=== PATIENT | female | born 1940 | race Caucasian/White ===

== ENCOUNTER 2017-02-13 16:49 | Emergency (ER) | payer OTHER, BC ==
--- NOTE | 2017-02-13 16:58 | PDOC ---
History of Present Illness - General History Source: Patient, Old Records Exam Limitations: No Limitations - History of Present Illness Initial Comments: 02/13/17 18:02 The patient is a 76 year old female, with a significant past medical history of hypertension, hyperlipidemia and diabetes, who presents to the emergency department with bilateral lower extremity edema, right greater than left, for the past 2-3 weeks. The patient denies any chest pain or shortness of breath. The patient denies fever, chills, nausea, vomiting, diarrhea or dysuria. The patient is on one daily baby aspirin. Allergies: Amoxicillin, Cefadroxil, Codeine. Past Surgical History: Aortic Valve Replacement. Social History: Former smoker (quit in 1960). Denies alcohol or drug use. <Hannah Low - Last Filed: 02/13/17 18:17> - General History Source: Patient, Old Records Exam Limitations: No Limitations <No Rodrigues - Last Filed: 02/13/17 18:39> - General Chief Complaint: Edema Stated Complaint: BLE SWELLING Time Seen by Provider: 02/13/17 16:58 Past History <Hannah Low - Last Filed: 02/13/17 18:17> - Past Medical History Diabetes: Yes HTN: Yes Hypercholesterolemia: Yes - Surgical History Cardiac Surgery: Yes (aortic valve replacement with bovine valve x2) - Psycho/Social/Smoking Cessation Hx Anxiety: No Suicidal Ideation: No Smoking History: Former smoker Years of Tobacco Use: 2 (quit smoking age 21) Have you smoked in the past 12 months: No Hx Alcohol Use: No Substance Use Type: None Hx Substance Use Treatment: No <No Rodrigues - Last Filed: 02/13/17 18:39> - Past Medical History Allergies/Adverse Reactions: Allergies Allergy/AdvReac Type Severity Reaction Status Date / Time amoxicillin Allergy Verified 12/12/14 13:09 cefadroxil Allergy Verified 02/13/17 17:06 codeine Allergy Verified 12/12/14 13:09 Home Medications: Ambulatory Orders Amlodipine Besylate [Norvasc -] 5 mg PO DAILY 12/12/14 Aspirin [ASA -] 81 mg PO DAILY 12/12/14 Calcium 1 tab PO DAILY 12/12/14 Cholecalciferol (Vitamin D3) [Vitamin D3] 1,000 unit PO DAILY 12/12/14 Lansoprazole [Prevacid -] 30 mg PO DAILY 12/12/14 Levothyroxine [Synthroid -] 75 mcg PO DAILY 12/12/14 Magnesium Oxide [Magnesium] 400 mg PO DAILY 12/12/14 Multivitamins 1 tab PO DAILY 12/12/14 Olmesartan Medoxomil [Benicar -] 40 mg PO DAILY 12/12/14 Vitamin E 1,000 unit PO DAILY 12/12/14 Insulin (Levemir) [Levemir Flexpen -] 15 units SQ HS 02/13/17 Insulin Lispro Protamin/Lispro [Humalog Mix 50-50 Kwikpen] 35 unit SQ BID Pregabalin [Lyrica] 50 mg PO TID 02/13/17 Review of Systems - Review of Systems Able to Perform ROS?: Yes Comments:: 02/13/17 17:32 GENERAL/CONSTITUTIONAL: No fever or chills. No weakness. HEAD, EYES, EARS, NOSE AND THROAT: No change in vision. No ear pain or discharge. No sore throat. CARDIOVASCULAR: No chest pain or shortness of breath. RESPIRATORY: No cough, wheezing, or hemoptysis. GASTROINTESTINAL: No nausea, vomiting, diarrhea or constipation. GENITOURINARY: No dysuria, frequency, or change in urination. MUSCULOSKELETAL: No joint or muscle pain. No neck or back pain. EXTREMITY: +Bilateral lower extremity edema. SKIN: No rash. NEUROLOGIC: No headache, vertigo, loss of consciousness, or change in strength/ sensation. ENDOCRINE: No increased thirst. No abnormal weight change. HEMATOLOGIC/LYMPHATIC: No anemia, easy bleeding, or history of blood clots. ALLERGIC/IMMUNOLOGIC: No hives or skin allergy. <Hannah Low - Last Filed: 02/13/17 18:17> *Physical Exam - Physical Exam Comments: 02/13/17 17:08 GENERAL: Awake, alert, and fully oriented, in no acute distress. HEAD: No signs of trauma. EYES: PERRLA, EOMI, sclera anicteric, conjunctiva clear. ENT: Auricles normal inspection, hearing grossly normal, nares patent, oropharynx clear without exudates. Moist mucosa. NECK: Normal ROM, supple, no lymphadenopathy, JVD, or masses. LUNGS: Breath sounds equal, clear to auscultation bilaterally. No wheezes, and no crackles. HEART: Systolic ejection murmur. Regular rate and rhythm, normal S1 and S2, no rubs or gallops. ABDOMEN: Soft, nontender, normoactive bowel sounds. No guarding, no rebound. No masses. EXTREMITIES: +2 bipedal edema. Normal range of motion. No clubbing or cyanosis. No cords, erythema, or tenderness. NEUROLOGICAL: Cranial nerves II through XII intact. Normal speech, normal gait. SKIN: Warm, dry, normal turgor, no rashes or lesions noted. <Hannah Low - Last Filed: 02/13/17 18:17> ED Treatment Course - LABORATORY CBC & Chemistry Diagram: 02/13/17 17:24 02/13/17 17:24 <Hannah Low - Last Filed: 02/13/17 18:17> - LABORATORY CBC & Chemistry Diagram: 02/13/17 17:24 02/13/17 17:24 <No Rodrigues - Last Filed: 02/13/17 18:39> Medical Decision Making - Medical Decision Making 02/13/17 18:17 EXAM: US/DUPLEX VASCULAR US - 1 LEG Reviewed By: Dr. Miguel Nevarez IMPRESSION: There is no evidence of a deep venous thromboses in the right lower extremity. <Hannah Low - Last Filed: 02/13/17 18:17> - Medical Decision Making 02/13/17 17:14 76-year-old female with history of hypertension, high cholesterol and diabetes who presents the emergency Department with complaints of 2-3 week history of bilateral lower extremity pain and swelling right greater than left. There is no chest pain or SOB and the vital signs are normal. Differential diagnosis includes but is not limited to: DVT, CHF, phlebitis, dependent edema. Plan: 1. Labs 2. Right lower extremity duplex to rule out DVT 3. Chest x-ray 4. Observe and reevaluate 02/13/17 18:36 Addendum: Ultrasound was negative for DVT. Will discharge home, follow-up with PCP as scheduled--the patient has an appointment for a cardiac echo on 02/20. Return to the ED if symptoms persist, worsen or new Sx arise. <No Rodrigues - Last Filed: 02/13/17 18:39> *DC/Admit/Observation/Transfer - Attestations Scribe Attestion: 02/13/17 17:08 Documentation prepared by Hannah Low, acting as certified ophthalmic medical technician for No Rodrigues MD. <Hannah Low - Last Filed: 02/13/17 18:17> - Discharge Dispostion Admit: No - Attestations Physician Attestion: 02/13/17 17:16 I, Dr. No Rodrigues, attest that the scribes documentation that appears above has been prepared under my direction and personally reviewed by me in its entirety. I confirmed that the note above accurately reflects all work, treatment, procedures, and medical decision-making performed by me. <No Rodriguse - Last Filed: 02/13/17 18:39> Diagnosis at time of Disposition: Edema extremities - Discharge Dispostion Disposition: HOME Condition at time of disposition: Stable - Patient Instructions Printed Discharge Instructions: DI for Peripheral Edema -- Bilateral Additional Instructions: You have swelling in your legs. The ultrasound of your right lower extremity did not show a blood clot. Please follow-up with your primary care physician as scheduled. Please return to the ED if your symptoms persist, worsen or new symptoms arise.
[2017-02-13 17:13] VITALS: BP 167/90; PULSE 90; TEMP 98.3; BMI 32.3
[2017-02-13 17:40] LABS: BASOPHIL 0.8 % (0-2.0); EOSINOPHIL 3.2 % (0-4.5); MCH 31.2 pg (25.7-33.7); MCHC 33.6 g/dl (32.0-36.0); MEAN CELL VOLUME 92.8 fl (80-96); MEAN PLT VOLUME 9.7 fl (7.5-11.1); PLATELET COUNT 177 K/MM3 (134-434); RDW 13.4 % (11.6-15.6); WHITE BLOOD COUNT 7.1 K/mm3 (4.0-10.0)
[2017-02-13 17:54] LABS: ALK PHOS 83 U/L (32-92); ANION GAP 5 (8-16); BILIRUBIN,TOTAL 0.5 mg/dl (0.2-1.0); CO2 27 mmol/L (22-28); CREATININE 0.9 mg/dl (0.6-1.3); GLUCOSE,RANDOM 151 mg/dl (74-106); SGOT/AST 32 U/L (10-42); SGPT/ALT 23 U/L (10-40); TOT PROT 6.9 g/dl (6.4-8.3)
== END 2017-02-13 19:07 | disposition home or self-care (01) ==
LOC: FER 16:49
DX: R60.0 Localized edema (principal); I10 Essential (primary) hypertension; E11.9 Type 2 diabetes mellitus without complications; E78.00 Pure hypercholesterolemia, unspecified; Z95.1 Presence of aortocoronary bypass graft; Z87.891 Personal history of nicotine dependence
CPT/HCPCS: 36415; 71020-TC; 80053; 83880; 85025; 85379; 93971-TC; 99282-25